=== PATIENT | male | born 1965 | race American Indian/Alaskan Native ===

== ENCOUNTER 2020-07-07 16:10 | Emergency (ER) | payer BC ==
--- NOTE | 2020-07-07 17:02 | Emergency Department Report ---
ED Chest Pain HPI - General Chief Complaint: Chest Pain Stated Complaint: BACK PAIN PUI?: No Time Seen by Provider: 07/07/20 16:40 Source: patient Mode of arrival: Ambulatory Limitations: No Limitations - History of Present Illness Initial Comments: Patient is a 55-year-old male that presents emergency room with complaints of ch est pain and back pain. Patient states that his chest and back pain started this morning at 7 AM. Patient states he was at work and was lifting a box and began having chest and back pain. Patient states that his chest pain was worsening throughout the day so he came to the emergency room to be checked out. Patient states that his chest pain is nonradiating. Patient states that his chest pain and back pain are a 6 out of 10. Patient states that the chest pain is better with rest and worse with movement. Patient states there is no change in his chest pain with exertion. Patient states he has no past medical history. Patient denies fever and chills. Patient denies cough. Patient denies shortness of breath. Patient denies recent travel. Patient denies recent international travel. Patient denies exposure to the novel coronavirus. Patient denies sick contacts. Patient denies fever and chills. Patient denies cough. Patient denies diarrhea. Patient denies coming in contact with anybody with symptoms of the novel coronavirus. MD Complaint: chest pain -: Sudden Onset: during exertion Pain Location: left chest, right chest Pain Radiation: none Severity: moderate Severity scale (0 -10): 6 Quality: sharp Consistency: constant Improves With: rest Worsens With: movement re: denies: nausea, vomting, diaphoresis, dyspnea, sense of impending doom Other Symptoms: denies: cough, fever, syncope, rash, acid taste in mouth, leg swelling, palpitations, burping Treatments Prior to Arrival: none Aspirin use within the Past 7 Days: (0) No - Related Data On Oral Contraceptives: No Previous Rx's Medication Instructions Recorded Last Taken Type Metaxalone [Skelaxin] 800 mg PO TID PRN #30 tablet 07/07/20 Unknown Rx Allergies Allergy/AdvReac Type Severity Reaction Status Date / Time No Known Allergies Allergy Unverified 07/07/20 16:25 Heart Score - HEART Score History: Slightly suspicious EKG: Normal Age: 45-65 Risk factors: No known risk factors Troponin: < normal limit HEART Score: 1 ED Review of Systems ROS: Stated complaint: BACK PAIN Other details as noted in HPI Constitutional: denies: chills, fever Eyes: denies: eye pain, eye discharge, vision change ENT: denies: ear pain, throat pain Respiratory: denies: cough, shortness of breath, wheezing Cardiovascular: chest pain. denies: palpitations Endocrine: no symptoms reported Gastrointestinal: denies: abdominal pain, nausea, diarrhea Genitourinary: denies: urgency, dysuria Musculoskeletal: back pain. denies: joint swelling, arthralgia Skin: denies: rash, lesions Neurological: denies: headache, weakness, paresthesias Psychiatric: denies: anxiety, depression Hematological/Lymphatic: denies: easy bleeding, easy bruising ED Past Medical Hx - Past Medical History Previous Medical History?: No Hx Hypertension: No Hx CVA: No Hx Diabetes: No - Surgical History Past Surgical History?: No - Family History Family history: no significant - Social History Smoking Status: Never Smoker Substance Use Type: None - Medications Home Medications: Home Medications Medication Instructions Recorded Confirmed Last Taken Type Metaxalone [Skelaxin] 800 mg PO TID PRN #30 tablet 07/07/20 Unknown Rx ED Physical Exam - General Limitations: No Limitations General appearance: alert, in no apparent distress - Head Head exam: Present: atraumatic, normocephalic - Eye Eye exam: Present: normal appearance - ENT ENT exam: Present: mucous membranes moist - Neck Neck exam: Present: normal inspection - Respiratory Respiratory exam: Present: normal lung sounds bilaterally, chest wall tenderness (Bilateral external tenderness to palpation. Palpation of the chest wall reproduces symptoms.). Absent: respiratory distress, wheezes, rales - Cardiovascular Cardiovascular Exam: Present: regular rate, normal rhythm. Absent: systolic murmur, diastolic murmur, rubs, gallop - GI/Abdominal GI/Abdominal exam: Present: soft, normal bowel sounds - Rectal Rectal exam: Present: deferred - Extremities Exam Extremities exam: Present: normal inspection - Back Exam Back exam: Present: normal inspection, full ROM, tenderness, muscle spasm. Absent: CVA tenderness (R), CVA tenderness (L), paraspinal tenderness, vertebral tenderness - Neurological Exam Neurological exam: Present: alert, oriented X3 - Psychiatric Psychiatric exam: Present: normal affect, normal mood - Skin Skin exam: Present: warm, dry, intact, normal color. Absent: rash ED Course - Reevaluation(s) Reevaluation #1: I discussed all results and clinical findings with patient. I discussed plan of care with patient. Patient agrees with plan of care. Patient is stable for discharge. Patient will be discharged home. Patient given discharge instructions. Patient voiced understanding of discharge instructions. 07/07/20 17:50 - Consultations Consultation #1: I discussed case with Dr. Zhang. I sent the EKG to Dr. Zhang for review. Dr. Zhang states this is a changes secondary to early re-pole and is not a STEMI. No reciprocal changes 07/07/20 16:40 ED Medical Decision Making - Lab Data Result diagrams: 07/07/20 16:36 07/07/20 16:36 - EKG Data -: EKG Interpreted by Me EKG shows normal: sinus rhythm, axis, intervals, QRS complexes, ST-T waves Rate: normal - EKG Data Interpretation: other (ST segment elevation in V2 with no reciprocal changes) - Radiology Data Radiology results: report reviewed, image reviewed interpreted by me: Chest x-ray: No pneumonia, no pneumothorax, no foreign body, no osseous findings, no acute findings CHEST 2 VIEWS INDICATION / CLINICAL INFORMATION: Chest Pain. COMPARISON: None available. FINDINGS: SUPPORT DEVICES: None. HEART / MEDIASTINUM: No significant abnormality. LUNGS / PLEURA: No significant pulmonary or pleural abnormality. No pneumotho rax. ADDITIONAL FINDINGS: No significant additional findings. IMPRESSION: 1. No acute abnormality of the chest. - Medical Decision Making Patient is a 55-year-old male that presents emergency room with complaints of chest pain and back pain. Patient was at work when he lifted a box improperly and hurt his back and chest. Patient had an EKG which is abnormal but showed no STEMI. Patient had labs done which were essentially unremarkable. Patient symptoms started this morning at 7-8 AM. Patient stable for discharge. Patient be discharged home. Patient to follow-up with orthopedist and home theater installer. Patient information faxed over to her local home theater installer for risk stratification of his chest pain. - Differential Diagnosis Chest pain, chest sprain, costochondritis, back pain, back sprain Critical care attestation.: If time is entered above; I have spent that time in minutes in the direct care of this critically ill patient, excluding procedure time. ED Disposition Clinical Impression: Costochondritis, acute Chest pain Qualifiers: Chest pain type: unspecified Qualified Code(s): R07.9 - Chest pain, unspecified Thoracic back pain Qualifiers: Chronicity: acute Back pain laterality: bilateral Qualified Code(s): M54.6 - Pain in thoracic spine Thoracic back sprain Qualifiers: Encounter type: initial encounter Qualified Code(s): S23.9XXA - Sprain of unspecified parts of thorax, initial encounter Sprain of chest wall Qualifiers: Encounter type: initial encounter Qualified Code(s): S23.8XXA - Sprain of other specified parts of thorax, initial encounter Disposition: TO HOME OR SELFCARE Is pt being admited?: No Does the pt Need Aspirin: No Condition: Stable Instructions: Chest Pain (ED), Costochondritis (ED), Muscle Spasm (ED), Back Pain (ED), Core Strengthening Exercises (GEN) Additional Instructions: Patient to follow-up with primary care in 2 to 3 days. Patient to follow-up with cardiology and orthopedist in 2 to 3 days. Patient to rest. Patient to increase water. Patient to avoid strenuous exercise or heavy lifting until cleared by cardiology and orthopedist patient to take Tylenol or ibuprofen as needed for pain. Patient to take meds as directed. Patient to return to the ER if condition worsens, changes or new symptoms arise. Patient will need to see cardiology for risk stratification of chest pain. Prescriptions: Metaxalone [Skelaxin] 800 mg PO TID PRN #30 tablet PRN Reason: Muscle Spasm Referrals: SARAH ZHANG MD [Staff Physician] - 2-3 Days ANSLEY HILLMAN MD [Staff Physician] - 2-3 Days DEV MENDES MD [Staff Physician] - 2-3 Days AARTI SOUSA MD [Staff Physician] - 2-3 Days Time of Disposition: 17:49
[2020-07-07 17:03] LABS: Basophils % (Auto) 0.8 % (0.0-1.8); Eosinophils # (Auto) 0.2 K/mm3 (0.0-0.4); Eosinophils % (Auto) 3.3 % (0.0-4.3); Hematocrit 39.7 % (35.5-45.6); Lymphocytes # (Auto) 1.1 K/mm3 (1.2-5.4); Lymphocytes % (Auto) 23.8 % (13.4-35.0); Mean Corpuscular HGB Conc 33 % (32-34); Mean Corpuscular Volume 92 fl (84-94); Monocytes # (Auto) 0.5 K/mm3 (0.0-0.8); Monocytes % (Auto) 10.4 % (0.0-7.3); Platelet Count 186 K/mm3 (140-440); Red Blood Count 4.32 M/mm3 (3.65-5.03); Red Cell Distribution Width 12.9 % (13.2-15.2)
--- NOTE | 2020-07-07 17:14 | XRay Report ---
CHEST 2 VIEWS INDICATION / CLINICAL INFORMATION: Chest Pain. COMPARISON: None available. FINDINGS: SUPPORT DEVICES: None. HEART / MEDIASTINUM: No significant abnormality. LUNGS / PLEURA: No significant pulmonary or pleural abnormality. No pneumothorax. ADDITIONAL FINDINGS: No significant additional findings. IMPRESSION: 1. No acute abnormality of the chest. Signer Name: Jose White MD Signed: 07/07/2020 5:10 PM Workstation Name: [id number]
[2020-07-07 17:28] LABS: Alanine Aminotransferase 28 units/L (7-56); Albumin 4.2 g/dL (3.9-5); Blood Urea Nitrogen 23 mg/dL (9-20); Calcium 9.7 mg/dL (8.4-10.2); Hemolysis Index 4
[2020-07-07 17:33] LABS: BUN/Creatinine Ratio 33
[2020-07-07 17:59] VITALS: BP 123/80
== END 2020-07-07 18:02 | disposition home or self-care (01) ==
LOC: ED 16:10
DX: S23.9XXA Sprain of unspecified parts of thorax, initial encounter (principal); S23.8XXA Sprain of other specified parts of thorax, initial encounter; M94.0 Chondrocostal junction syndrome [Tietze]; Z79.899 Other long term (current) drug therapy; X50.9XXA Other and unspecified overexertion or strenuous movements or postures, initial encounter; X50.0XXA Overexertion from strenuous movement or load, initial encounter; Y93.89 Activity, other specified; Y92.89 Other specified places as the place of occurrence of the external cause; Y99.8 Other external cause status
CPT/HCPCS: 36415; 71046; 80053; 84484; 85025; 93005

== ENCOUNTER 2020-07-10 09:36 | Emergency (ER) | payer BC ==
[2020-07-10 09:42] VITALS: BP 136/91
--- NOTE | 2020-07-10 11:56 | Emergency Department Report ---
ED Back Pain/Injury HPI - General Chief Complaint: Back Pain/Injury Stated Complaint: BACK PAIN Time Seen by Provider: 07/10/20 11:31 Source: patient Limitations: No Limitations - History of Present Illness Initial Comments: Patient is a 55-year-old male presents emergency room with complaints of left lower back pain that began a week ago. 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 He denies any fall or injury. He denies any numbness, weakness, bowel or bladder incontinence. He does not report any fever, nausea, vomiting, diarrhea. He denies any past medical history. No allergies to medications. He has not seen an orthopedic or primary care physician. Patient was evaluated on 07/07/2020 for back pain and chest pain and was prescribed Skelaxin at that time. He states that the chest pain has resolved but whenever he went to work and had to do more lifting the back pain began again. He denies any IV drug use, steroid use, history of cancer. - Related Data Previous Rx's Medication Instructions Recorded Last Taken Type Metaxalone [Skelaxin] 800 mg PO TID PRN #30 tablet 07/07/20 Unknown Rx Menthol/Camphor [[place] Bokeelia 1 applicatio TP BID #8 oint...g. 07/10/20 Unknown Rx Ointment] Naproxen [EC-Naprosyn] 500 mg PO BID PRN #14 tablet. 07/10/20 Unknown Rx Allergies Allergy/AdvReac Type Severity Reaction Status Date / Time No Known Allergies Allergy Unverified 07/07/20 16:25 ED Review of Systems ROS: Stated complaint: BACK PAIN Other details as noted in HPI Comment: All other systems reviewed and negative ED Past Medical Hx - Past Medical History Previous Medical History?: No Hx Hypertension: No Hx CVA: No Hx Diabetes: No - Surgical History Past Surgical History?: No - Social History Smoking Status: Never Smoker Substance Use Type: None - Medications Home Medications: Home Medications Medication Instructions Recorded Confirmed Last Taken Type Metaxalone [Skelaxin] 800 mg PO TID PRN #30 tablet 07/07/20 Unknown Rx Menthol/Camphor [[place] Bokeelia 1 applicatio TP BID #8 oint...g. 07/10/20 Unknown Rx Ointment] Naproxen [EC-Naprosyn] 500 mg PO BID PRN #14 tablet. 07/10/20 Unknown Rx ED Physical Exam - General Limitations: No Limitations General appearance: alert, in no apparent distress - Head Head exam: Present: atraumatic, normocephalic - Eye Eye exam: Present: normal appearance - ENT ENT exam: Present: mucous membranes moist - Neck Neck exam: Present: normal inspection, full ROM. Absent: tenderness - Respiratory Respiratory exam: Present: normal lung sounds bilaterally. Absent: respiratory distress, wheezes, rales, rhonchi, stridor, chest wall tenderness, accessory muscle use, decreased breath sounds, prolonged expiratory - Cardiovascular Cardiovascular Exam: Present: regular rate, normal rhythm, normal heart sounds. Absent: systolic murmur, diastolic murmur, rubs, gallop - Back Exam Back exam: Present: normal inspection, full ROM, paraspinal tenderness (left sided lumbar paraspinal muscular ttp, no midline C-spine, T-spine or L-spine ttp, no step offs, no deformities ). Absent: CVA tenderness (R), CVA tenderness (L), vertebral tenderness - Neurological Exam Neurological exam: Present: alert, oriented X3, CN II-XII intact, normal gait. Absent: motor sensory deficit - Psychiatric Psychiatric exam: Present: normal affect, normal mood - Skin Skin exam: Present: warm, dry, intact ED Course Vital Signs 07/10/20 09:40 Temperature 97.9 F Pulse Rate 68 Respiratory 18 Rate Blood Pressure 136/91 O2 Sat by Pulse 97 Oximetry ED Medical Decision Making - Medical Decision Making Patient is a 55-year-old male presents emergency room with complaints of left lower back pain that began a week ago. 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 He denies any fall or injury. He denies any numbness, weakness, bowel or bladder incontinence. He does not report any fever, nausea, vomiting, diarrhea. He denies any past medical history. No allergies to medications. He has not seen an orthopedic or primary care physician. Patient was evaluated on 07/07/2020 for back pain and chest pain and was prescribed Skelaxin at that time. He states that the chest pain has resolved but whenever he went to work and had to do more lifting the back pain began again. He denies any IV drug use, steroid use, history of cancer. Vitals are stable. On exam: left sided lumbar paraspinal muscular ttp, no midline C-spine, T-spine or L-spine ttp, no step offs, no deformities. Examination appears consistent with muscle strain. He has no midline tenderness, no step-offs, no deformities, no focal neuro deficits. Patient has no red flag warning signs of back pain, no trauma, no unexplained weight loss, no neuro deficits, no fever, no IV drug use, no steroid use, no history of cancer. Patient will be given prescription for naproxen and [place] balm ointment. Patient will be referred to primary care doctor and orthopedic. Advised patient please use medication as prescribed. May use ice pack, heating pad, rest, Epson salt bath. Follow-up with your primary care doctor. Follow-up with orthopedic/spine doctor. Return to emergency room for any new or worsening symptoms. - Differential Diagnosis strain, sprain, fx, dislocation, DDD, bulging disc, lumbar radiculopathy Critical care attestation.: If time is entered above; I have spent that time in minutes in the direct care of this critically ill patient, excluding procedure time. ED Disposition Clinical Impression: Low back strain Qualifiers: Encounter type: subsequent encounter Qualified Code(s): S39.012D - Strain of muscle, fascia and tendon of lower back, subsequent encounter Disposition: DC-01 TO HOME OR SELFCARE Is pt being admited?: No Does the pt Need Aspirin: No Condition: Stable Instructions: Muscle Strain (ED) Additional Instructions: please use medication as prescribed. May use ice pack, heating pad, rest, Epson salt bath. Follow-up with your primary care doctor. Follow-up with orthoped ic/spine doctor. Return to emergency room for any new or worsening symptoms. Prescriptions: Naproxen [EC-Naprosyn] 500 mg PO BID PRN #14 tablet.[address] CARDOSO Reason: pain Menthol/Camphor [[place] Bokeelia Ointment] 1 applicatio TP BID #8 oint...g. Referrals: PRIMARY MD YVONNE [Primary Care Provider] - 2-3 Days AARTI SOUSA MD [Staff Physician] - 2-3 Days ANSLEY HILLMAN MD [Staff Physician] - 2-3 Days [facility] [Provider Group] - 2-3 Days Forms: Work/School Release Form(ED) Time of Disposition: 12:00 Print Language: AMHARIC
== END 2020-07-10 12:15 | disposition home or self-care (01) ==
LOC: ED 09:36
DX: S39.012D Strain of muscle, fascia and tendon of lower back, subsequent encounter (principal); X58.XXXD Exposure to other specified factors, subsequent encounter
CPT/HCPCS: 99281